=== PATIENT | female | born 1995 | race Caucasian/White ===

== ENCOUNTER 2019-05-30 14:03 | Emergency (ER) | payer MEDICAID ==
[~2019-05-30] VITALS: Ht 182.9 cm; Wt 64.0 kg
[2019-05-30 14:17] VITALS: BP 128/78
--- NOTE | 2019-05-30 14:48 | NUR ---
PT CAME IN CO OF BURNING SENSATION WHYEN URINATING WELL FREQUENT URINATION. UA SENT
[2019-05-30 14:57] LABS: HCG UR SG 1.021 (1.003-1.030); MICROSCOPIC AUTO
[2019-05-30 15:01] LABS: CULTURE INDICATED? YES
== END 2019-05-30 15:38 | disposition home or self-care (01) ==
LOC: ED 15:35
DX: N30.01 Acute cystitis with hematuria (principal); R30.0 Dysuria
CPT/HCPCS: 81001; 81025; 87077; 87086; 99283